=== PATIENT | female | born 1985 | race Two or more races ===

== ENCOUNTER 2024-08-31 10:53 | Outpatient (AMB) | payer MEDICAID, SELFPAY ==
[2024-08-31 11:30] VITALS: BP 110/70; PULSE 70; RESP 16; TEMP 36.4; O2SAT 97; BMI 28.5
--- NOTE | 2024-08-31 11:30 | AMB.OBINITIA ---
Vital Signs 08/31/24 11:30 Height 1.6 m Height Method Stated Weight 73.198 kg Weight Measurement Method Standing Scale BMI 28.5 BP 110/70 Blood Pressure Source Automatic Cuff Blood Pressure Location Left Upper Arm Position Sitting Respiration 16 Pulse 70 Pulse Source Monitor Temp 97.6 F Temp Source Oral Pulse Oximetry (%) 97 Oxygen Delivery Method Room Air Allergies/Home Meds Allergies & Medications Allergies No Known Allergies Allergy (Verified 08/31/24 11:31) Medication Reconciliation vitamins-iron fumarate 27 mg iron-folic acid 0.8 mg tablet ( Vitamin) 1 tab PO QDAY 11/04/19 [History Confirmed 08/31/24] Intake Visit Data Collection New Patient or Established: Established Patient (seen at [facility] within 3 years) Reason for Visit:: CARE TRANSFER Seen by Clinical Staff ONLY (RN/MA): No Yeast Fermentation Attendant Required: No Do You Feel Safe at Home: Yes Authorities Contacted: N/A PCP or OBGYN visit in last 3 months: Yes Hx Now: Yes Are you currently on any form of Control: No Last menstrual period: 12/18/23 Pain Present Currently: No Pain Scale Used: Rankin-Avila/Numerical Pain scale:: 0 Smoking Status Smoking Status: Never smoker Questionnaires Covid-19 Vaccine Questionnaire Has patient been vacinated for Covid-19 Have you been vacinated for Covid-19: Yes PHQ-9 PHQ-2 Over the last 2 weeks, how often have you been bothered by any of the following problems? 1. Little interest or pleasure in doing things: not at all 2. Feeling down, depressed, or hopeless: not at all Total score: 0 PHQ-9 3. Trouble falling or staying asleep, or sleeping too much: Not at all 4. Feeling tired or having little energy: Not at all 5. Poor appetite or overeating: Not at all 6. Feeling bad about yourself - or that you are a failure or have let yourself or your family down: Not at all 7. Trouble concentrating on things, such as reading the newspaper or watching television: Not at all 8. Moving or speaking so slowly that other people could have noticed? - Or the opposite - being so fidgety or restless that you have been moving around a lot more than usual: not at all 9. Thoughts that you would be better off or of hurting yourself in some way: Not at all Total score: 0 Source: Developed by Drs. Richard Rose, Celi Woo, Anish Mitchell and colleagues, with an educational joe from [employer]. Depression screen completed yes Social History Living Situation History Marital Status: Lives With: Family Housing: House Tobacco History Smoking Status: Never smoker Second Hand Smoke Exposure: No Alcohol History Alcohol Intake: Never Domestic Abuse History Do You Feel Safe at Home: Yes Past Medical History Past Medical History Have you ever been diagnosed with any of the following: Neurological Problems Cerebrovascular Accident (CVA): No Transient Ischemic Attacks (TIA): No Dementia: No Alzheimer's Disease: No Parkinson's Disease: No Brain Tumor: No Seizures: No Guillain-Logan Syndrome: No Cardiology Problems Myocardial Infarction: No Cardiac Arrhythmia: No Atrial Fibrillation: No Angina: No Heart Murmur: No Congestive Heart Failure: No Hypertension: No Respiratory Problems Chronic Obstructive Pulmonary Disease (COPD): No Asthma: No Tuberculosis: No Hx Cough: No Cough: No Wheezing: No Chest Deformities: No Smoking: No Smoking Cessation Counseling: No Smoking Exposure: No Tobacco Use: No Stomache/Intestinal Problems Liver Cancer: No Hepatitis: No Gall Bladder Disease: No Colorectal Cancer: No Genital/Urinary Problems Chronic Kidney Disease: No Renal Disease: No Kidney Stones: No Dialysis: No Reproductive Problems Breast Cancer: No Endometriosis: No Pelvic Inflammatory Disease: No Previous Pregnancies: Yes Uterine Prolapse: No Musculoskeletal Problems Muscular Dystrophy: No Myasthenia Gravis: No Marfan's Syndrome: No Bone Cancer: No Head,Eye,Nose,Throat Problems Macular Degeneration: No Chronic Ear Infections: No Endocrine Problems Diabetes Mellitus Type 1: No Diabetes Mellitus Type 2: No (MOTHER) [place]'s Syndrome: No Bernardo's Disease: No Thyroid Cancer: No Adrenal Disease: No Graves' Disease: No Blood Problems Anemia: No Leukemia: No Hemophilia: No Thalassemia: No Sickle Cell Disease: No Clotting Problems: No Psychologic Problems Schizophrenia: No Recreational Drug Use: No Bipolar Disorder: No Depression: No Anxiety: No Depression: No Other Problems Hospitalization: No Autoimmune Disease: No Down Syndrome: No Autism: No Developmental Delay: No Cosmetic Surgery: No Shingles: No Falls: No Blood Transfusions: No Blood Transfusion Reaction: No Anesthesia Reactions: No Organ Transplant: No Chemotherapy: No Radiation Therapy: No Hyperbaric Therapy: No Cancer: No Cervical Cancer: No Lung Cancer: No Ovarian Cancer: No Surgical History Angioplasty: No Appendectomy: No Bariatric Surgery: No Breast Surgery: No Hysterectomy: No Pacemaker: No Sinus Surgery: No Splenectomy: No History of Present Illness HPI Narrative 39-year-old 6 para 4 SAB 1 for first visit to [facility] OB clinic. Patient has previously been seen for care at [facility]. Her records are still pending. Last. Is December 17, 2024 this gave us due date of September 23, 2024. Patient has a follow-up MFM appointment September 10. Patient is currently doing weekly NST BPP for advanced maternal age. Reports good movement. Denies social habits. Denies surgeries. Denies chronic illness. There has been no problems with the so far. No complaints of contractions. Denies leaking and bleeding. Patient reports fetus is active OB Initial Visit OB Flowsheet OB Flowsheet Initial Weight: Not Recorded Date <del>?</del> EGA Weight Edema CTX Effacement BP Fundal ht Pres Dilation Effacement Station Visit Note Alb Glu FHR Mov 08/31/24 <del>?</del> 36w 5d 73.198 kg absent absent 110/70 cephalic 39 yo 6 para 4 SAB 1 for first visit to [facility] OB clinic. Patient's last period was December 18, 2023. Due date September 23, 2024. Patient reports good movement. Denies complaints of labor. Denies leaking or bleeding. Patient has a follow-up MFM appointment September 10, 2024. She is getting weekly BPP NST for advanced maternal age. She is taking her vitamins and iron. Medical records are pending. Discussed kick count and labor precautions with patient. Continue to do weekly NST BPP and labor and delivery. Patient needs group B strep at next appointment Menstrual History Menstrual reliability: definite Flow: normal Menstrual regularity: regular Monthly: Yes Age at menarche: 12 On control pills at conception: No Date of positive home test: 04/07/25 Associated symptoms (LMP): Denies amenorrhea, nausea, vomiting, fatigue, breast tenderness, urinary frequency, irritability, bloating or other OB History : 6 Para: 4 Hx Total # of Abortions (Spontaneous & Elective): 1 # of Living Children: 4 Delivery History 1st : Child's name: KEILY date: 09/05/02 sex: female Delivery type: vaginal Delivery complications: NONE History of depression before or after : No 2nd : Child's name: JORDAN date: 10/27/06 sex: male Delivery type: vaginal Delivery complications: NONE History of depression before or after : No 3rd : Child's name: SUSY date: 11/01/13 sex: male Delivery type: vaginal Delivery complications: NONE History of depression before or after : No 4th : Child's name: CHARLES date: 11/16/19 sex: female Delivery type: vaginal Delivery complications: NONE History of depression before or after : No Infection History & Risk Evaluation History of STDs: none Genetic Screening & History Genetic Screening/Teratology Counseling - Includes patient, baby's father, or anyone in either family with: 1. Patient's age 35 years or older as of estimated date of delivery: Yes 2. Thalassemia (Serbian, Turkish, Mediterranean, or Background); MCV less than 80: No 3. Neural Tube Defect (Meningomyelocele, Spina Bifida, or Anencephaly): No 4. Congenital Heart Defect: No 5. Down Syndrome: No 6. Marito-Sachs (Ashkenazi Hindu, Cajun, Setswana Power): No 7. Vikki Disease (Ashkenazi Hindu): No 8. Familial Dysautonomia (Ashkenazi Hindu): No 9. Sickle Cell Disease or Trait (): No 10. Hemophilia or other blood disorders: No 11. Muscular Dystrophy: No 12. Cystic Fibrosis: No 13. Thomas's Chorea: No 14. Mental Retardation/Autism: No 15. Other inherited genetic or chromosomal disorder: No 16. Maternal Metabolic Disorder (EG,TYPE 1 Diabetes, PKU): No 17. Patient or baby's father had a child with defects not listed above: No 18. Recurrent loss or a stillbirth: No 19. Medications (including supplements, vitamins, herbs or otc drugs)/illicit/recreational drugs/alcohol since last menstrual period: No 20. Any other: No Infection History 1. Live with someone with TB or exposed to TB: No 2. Rash or viral illness since last menstrual period: No 3. Hepatitis B,C: No Other (see comments) Source: [employer] Review of Systems Review of Systems Systems Reviewed: All systems reviewed, normal except as documented Constitutional Constitutional: Denies fatigue Gastrointestinal Gastrointestinal: Denies bloating, Denies nausea and Denies vomiting Genitourinary Genitourinary: Denies amenorrhea and Denies urinary frequency Psychiatric Psychiatric: Denies irritability Endocrine Endocrine: Denies fatigue Exam General Limitations: no limitations General Appearance: alert, in no apparent distress, comfortable, cooperative, healthy appearing, well developed and well groomed Chest Chest inspection: Present normal inspection and symmetric chest wall rise Resp Respiratory exam: Present normal lung sounds bilaterally Card Cardiovascular exam: Present regular rate, normal rhythm and normal heart sounds Abdominal Abdominal exam: Present soft (fh:35 fht:156) and normal bowel sounds Psych Psychiatric exam: Present normal affect and normal mood Assessment & Plan Diagnosis / Problem List (1) Advanced maternal age (AMA) in : Status: Acute (2) Encounter for supervision of normal in multigravida in third trimester: Status: Acute Plan Continue vitamins and iron. Discussed kick counts twice a day. Continue weekly NST BPP at labor and delivery. Keep follow-up appointment with maternal- medicine September 10. GBS next visit. Discussed labor precautions. Additional Plan Follow Up: 1 Week (obc) Office Procedures OB Clinic LOC & Office Proc's Nursing/Assessment Patient Status: Established Patient OB Clinic Nursing Assessment: Medication Reconciliation, Update PMH in EMR and Vital Signs OB Clinic Coordination of Care: AMA, Complex Care and Chronic Disease 1-5, Consent,records obtained, informed consent, Education Simp Pt/Fam, Lab and Imaging orders, Results/Orders obtained and Staff clarify orders Special Needs: Heart tones Established Patient Charge Established Patient Point Assignment: 155 Established Patient Point Charge: EP Level 4 (120-155)
== END 2024-08-31 12:03 | disposition home or self-care (01) ==
LOC: HODSOBC 10:53
PROVIDERS: Supervising Provider Advanced Practice Midwife; Visit Provider Advanced Practice Midwife
DX: O09.523 Supervision of elderly multigravida, third trimester (principal); O09.43 Supervision of pregnancy with grand multiparity, third trimester; O09.293 Supervision of pregnancy with other poor reproductive or obstetric history, third trimester; Z3A.36 36 weeks gestation of pregnancy
CPT/HCPCS: 99214; G0463

== ENCOUNTER 2024-08-31 13:10 | Outpatient (RCR) | payer MEDICAID, SELFPAY ==
--- NOTE | 2024-08-24 13:24 | XR_ITS ---
Examination: Biophysical profile, ultrasound Date and time of exam: August 24, 2024 1414 hrs. Indications: Diagnosis advanced maternal age, diagnosis intrauterine growth retardation Technique: Multiple transabdominal sonographic images of the pelvis abdomen obtained. Attention is directed to the breathing movement, gross body movement, amniotic fluid volume and tone. Findings: Amniotic fluid index 8.1 cm Total biophysical profile is 8 of 8. breathing movement is 2. Gross body movement is 2. tone is 2. Qualitative amniotic fluid volume is 2 Impression: Biophysical profile is 8 of 8.
[2024-08-24 14:34] VITALS: BP 126/72; PULSE 84; RESP 16; TEMP 36.7
--- NOTE | 2024-08-31 13:21 | XR_ITS ---
Examination: Biophysical profile, ultrasound Date and time of exam: August 31, 2024 1315 hours INDICATIONS: Diagnosis advanced maternal age, diagnosis intrauterine growth retardation Technique: Multiple transabdominal sonographic images of the pelvis abdomen obtained. Attention is directed to the breathing movement, gross body movement, amniotic fluid volume and tone. Findings: Amniotic fluid index 12 cm Total biophysical profile is 8 of 8. breathing movement is 2. Gross body movement is 2. tone is 2. Qualitative amniotic fluid volume is 2 Impression: Biophysical profile is 8 of 8.
[2024-08-31 13:55] VITALS: BP 130/70; PULSE 89; RESP 16; TEMP 36.6
== END 2024-08-31 23:59 | disposition home or self-care (01) ==
LOC: S4S1 13:10
PROVIDERS: Referring Provider Student in an Organized Health Care Education/Training Program; Visit Provider Student in an Organized Health Care Education/Training Program
DX: O26.843 Uterine size-date discrepancy, third trimester (principal); O09.893 Supervision of other high risk pregnancies, third trimester; Z3A.36 36 weeks gestation of pregnancy
CPT/HCPCS: 59025; 76819

== ENCOUNTER 2024-09-14 14:23 | Outpatient (AMB) | payer MEDICAID, SELFPAY ==
[2024-09-14 14:35] VITALS: BP 111/72; PULSE 83; RESP 18; TEMP 36; O2SAT 97; BMI 28.8
--- NOTE | 2024-09-14 14:35 | AMB.OBVISIT ---
Vital Signs 09/14/24 14:35 Height 1.6 m Height Method Stated Weight 73.936 kg Weight Measurement Method Standing Scale BMI 28.8 BP 111/72 Blood Pressure Source Automatic Cuff Blood Pressure Location Left Upper Arm Position Sitting Respiration 18 Pulse 83 Pulse Source Monitor Temp 96.8 F Temp Source Oral Pulse Oximetry (%) 97 Oxygen Delivery Method Room Air Allergies/Home Meds Allergies & Medications Allergies No Known Allergies Allergy (Verified 09/14/24 14:36) Medication Reconciliation vitamins-iron fumarate 27 mg iron-folic acid 0.8 mg tablet ( Vitamin) 1 tab PO QDAY 11/04/19 [History Confirmed 09/14/24] Intake Visit Data Collection New Patient or Established: Established Patient (seen at [facility] within 3 years) Reason for Visit:: OBC Seen by Clinical Staff ONLY (RN/MA): No Coal Hiker Required: No Do You Feel Safe at Home: Yes Authorities Contacted: N/A PCP or OBGYN visit in last 3 months: Yes Date of Last PCP or OBGYN visit: 08/31/24 Hx Now: Yes Are you currently on any form of Control: No Pain Present Currently: No Pain scale:: 0 Smoking Status Smoking Status: Never smoker Questionnaires Covid-19 Vaccine Questionnaire Has patient been vacinated for Covid-19 Have you been vacinated for Covid-19: Yes PHQ-9 PHQ-2 Over the last 2 weeks, how often have you been bothered by any of the following problems? 1. Little interest or pleasure in doing things: not at all 2. Feeling down, depressed, or hopeless: not at all Total score: 0 PHQ-9 3. Trouble falling or staying asleep, or sleeping too much: Not at all 4. Feeling tired or having little energy: Not at all 5. Poor appetite or overeating: Not at all 6. Feeling bad about yourself - or that you are a failure or have let yourself or your family down: Not at all 7. Trouble concentrating on things, such as reading the newspaper or watching television: Not at all 8. Moving or speaking so slowly that other people could have noticed? - Or the opposite - being so fidgety or restless that you have been moving around a lot more than usual: not at all 9. Thoughts that you would be better off or of hurting yourself in some way: Not at all Total score: 0 If you checked off any problems, how difficult have these problems made it for you to do your work, take care of things at home, or get along with other people?: not difficult at all Source: Developed by Drs. Richard Rose, Celi Woo, Anish Mitchell and colleagues, with an educational joe from [employer]. Depression screen completed yes Social History Living Situation History Lives With: Family Housing: House Tobacco History Smoking Status: Never smoker Second Hand Smoke Exposure: No Alcohol History Alcohol Intake: Never Domestic Abuse History Do You Feel Safe at Home: Yes Past Medical History Past Medical History Have you ever been diagnosed with any of the following: Neurological Problems Cerebrovascular Accident (CVA): No Transient Ischemic Attacks (TIA): No Dementia: No Alzheimer's Disease: No Parkinson's Disease: No Brain Tumor: No Seizures: No Guillain-[place] Syndrome: No Cardiology Problems Myocardial Infarction: No Cardiac Arrhythmia: No Atrial Fibrillation: No Angina: No Heart Murmur: No Congestive Heart Failure: No Hypertension: No Respiratory Problems Chronic Obstructive Pulmonary Disease (COPD): No Asthma: No Tuberculosis: No Hx Cough: No Cough: No Wheezing: No Chest Deformities: No Smoking: No Smoking Cessation Counseling: No Smoking Exposure: No Tobacco Use: No Stomache/Intestinal Problems Liver Cancer: No Hepatitis: No Gall Bladder Disease: No Colorectal Cancer: No Genital/Urinary Problems Renal Disease: No Kidney Stones: No Dialysis: No Reproductive Problems Breast Cancer: No Endometriosis: No Pelvic Inflammatory Disease: No Previous Pregnancies: Yes Uterine Prolapse: No Musculoskeletal Problems Muscular Dystrophy: No Myasthenia Gravis: No Marfan's Syndrome: No Bone Cancer: No Head,Eye,Nose,Throat Problems Macular Degeneration: No Chronic Ear Infections: No Endocrine Problems Diabetes Mellitus Type 1: No Diabetes Mellitus Type 2: No (MOTHER) Morales's Syndrome: No Bernardo's Disease: No Thyroid Cancer: No Adrenal Disease: No Graves' Disease: No Blood Problems Anemia: No Leukemia: No Hemophilia: No Thalassemia: No Sickle Cell Disease: No Clotting Problems: No Psychologic Problems Schizophrenia: No Recreational Drug Use: No Bipolar Disorder: No Depression: No Anxiety: No Depression: No Other Problems Hospitalization: No Down Syndrome: No Autism: No Developmental Delay: No Cosmetic Surgery: No Shingles: No Falls: No Blood Transfusions: No Blood Transfusion Reaction: No Anesthesia Reactions: No Organ Transplant: No Chemotherapy: No Radiation Therapy: No Hyperbaric Therapy: No Cancer: No Cervical Cancer: No Lung Cancer: No Ovarian Cancer: No Surgical History Angioplasty: No Appendectomy: No Bariatric Surgery: No Breast Surgery: No Hysterectomy: No Pacemaker: No Sinus Surgery: No Splenectomy: No Review of Systems Review of Systems Systems Reviewed: All systems reviewed, normal except as documented Visit OB Visit Log OB Flowsheet Initial Weight: Not Recorded Date <del>?</del> EGA Weight Edema CTX Effacement BP Fundal ht Pres Dilation Effacement Station Visit Note Alb Glu FHR Mov 08/31/24 <del>?</del> 36w 5d 73.198 kg absent absent 110/70 cephalic 39 yo 6 para 4 SAB 1 for first visit to [facility] OB clinic. Patient's last period was December 18, 2023. Due date September 23, 2024. Patient reports good movement. Denies complaints of labor. Denies leaking or bleeding. Patient has a follow-up MFM appointment September 10, 2024. She is getting weekly BPP NST for advanced maternal age. She is taking her vitamins and iron. Medical records are pending. Discussed kick count and labor precautions with patient. Continue to do weekly NST BPP and labor and delivery. Patient needs group B strep at next appointment 09/14/24 <del>?</del> 38w 5d 73.936 kg absent absent 111/72 cephalic Reports good movement. Denies contractions. Complains of pressure. Denies leaking bleeding. Reviewed patient's labs. She had an abnormal 1 hour GTT but her 3-hour GTT was normal 1 value the 2-hour was high others were normal. I still reinforced the need to eat GDM diet and to walk 40 minutes a day. Patient is getting weekly NST BPP because of advanced maternal age. Discussed kick count twice a day. I reviewed labor precautions with patient. Urine dip was negative. Return in a week OB check KEN Calculator Estimated Delivery Date Method Current WG Current Estimate 09/23/24 Ultrasound #1 38w 5d Other Estimates 09/23/24 LMP (Certain) 38w 5d Assessment & Plan Diagnosis / Problem List (1) Encounter for supervision of normal in multigravida in third trimester: Status: Acute (2) Advanced maternal age (AMA) in : Status: Acute Plan discuss labor precaution, fkc bid, continue week NST/BPP for advanced maternal age, fluid, walk 40 minute daily, continue PNV and ironRTC 1 week Additional Plan Follow Up: 1 Week (obc) Office Procedures OB Clinic LOC & Office Proc's Nursing/Assessment Patient Status: Established Patient OB Clinic Nursing Assessment: BP Monitoring, Medication Reconciliation, Update PMH in EMR and Vital Signs OB Clinic Coordination of Care: Consent,records obtained, informed consent, Education Simp Pt/Fam and Staff clarify orders Special Needs: Heart tones Established Patient Charge Established Patient Point Assignment: 105 Established Patient Point Charge: EP Level 3 (80-115)
== END 2024-09-14 15:13 | disposition home or self-care (01) ==
LOC: HODSOBC 14:23
PROVIDERS: Supervising Provider Advanced Practice Midwife; Visit Provider Advanced Practice Midwife
DX: O09.523 Supervision of elderly multigravida, third trimester (principal); Z3A.38 38 weeks gestation of pregnancy; O09.293 Supervision of pregnancy with other poor reproductive or obstetric history, third trimester
CPT/HCPCS: 99213; G0463

== ENCOUNTER 2024-09-17 12:54 | Inpatient (IN) | payer MEDICAID, SELFPAY ==
[2024-09-17] VITALS (85 sets, daily range): BP systolic 118–168; BP diastolic 59–95; PULSE 56–87; RESP 18–99; TEMP 36.9; O2SAT 85–100; BMI 28.9
[2024-09-17 13:27] LABS: ROM Kit Lot # 578010271; ROM Swab Mixed By: WORMR; Rupture of Fetal Membranes Positive (Negative); Swb Mxed in Solvent 1 min? Yes
--- NOTE | 2024-09-17 14:00 | PD.LDHP ---
Documentation for date of: 09/17/24 OB Labor/Induct. HPI History of Present Illness Comments: H and P dictated on STAT line #9 in [employer] # [id number] Meds Home Medications and Allergies Home Medications ?Medication ?Instructions ?Recorded ?Confirmed ?Type vitamins-iron fumarate 27 1 tab PO QDAY 11/04/19 09/17/24 History mg iron-folic acid 0.8 mg tablet ( Vitamin) Allergies Allergy/AdvReac Type Severity Reaction Status Date / Time No Known Allergies Allergy Verified 09/17/24 13:51 OB Exam Physical Exam Vital signs: Temp Pulse Resp BP 98.4 F 79 18 133/80 H 09/17/24 12:54 09/17/24 12:58 09/17/24 12:54 09/17/24 12:58
--- NOTE | 2024-09-17 14:07 | PC.NURSE ---
Dr. Rivas notified of positive amnisure, patient to be admitted to labor unit
[2024-09-17] MEDS: RINGERS LACTATED 1000 ML 1,000 ML 100 ML IV ×3 (14:31→19:46)
[2024-09-17 14:46] LABS: Basophils % (Auto) 0 % (0-2.5); Eosinophils % (Auto) 0 % (0-10); Hematocrit 33.6 % (36.0-46.0); Hemoglobin 11.7 g/dL (12.0-16.0); Immature Granulocytes % (Auto) 1 % (0-0); Lymphocytes # (Auto) 2.5 Thou/mm3 (1.0-4.8); Lymphocytes % (Auto) 23 % (10-50); Mean Corpuscular HGB Conc 34.8 g/dl (31.0-37.0); Mean Corpuscular Volume 83 fL (80-100); Monocytes # (Auto) 0.6 Thou/mm3 (0.0-0.8); Monocytes % (Auto) 6 % (0-12); Neutrophils # (Auto) 7.9 Thou/mm3 (1.8-7.7); Neutrophils % (Auto) 70 % (37-80); Nucleated Red Blood Cell % 0 /100 WBC (0); Platelet Count 299 Thou/mm3 (140-440); RDW Standard Deviation 41.1 fL (36.4-46.3); Red Blood Count 4.04 Miln/mm3 (4.00-5.20); White Blood Count 11.2 Thou/mm3 (3.6-11.0)
--- NOTE | 2024-09-17 15:05 | ESHP_ITS ---
RE: HUE DE JESUS : 1985 DATE OF ADMISSION: 09/17/2024 HISTORY OF PRESENT ILLNESS: This is a 39-year-old 6, para 4-0-0-4 IUP 39w1d, who presents to labor and delivery complaining of leaking fluid since 0700 this morning on 09/17/2024 and is noted to have AmniSure positive. She reports regular contractions. She reports normal movement. She reports her care has been uncomplicated. [facility] with Saritha Watts, due date of 09/23/2024. OBSTETRIC HISTORY: Four previous full-term normal vaginal deliveries without complication and one spontaneous in the first trimester. PAST MEDICAL HISTORY: Advanced maternal age. PAST SURGICAL HISTORY: Denies. FAMILY HISTORY: Denies. REVIEW OF SYSTEMS: She denies any chest pain, palpitations, cough, fever, shortness of breath, or lower extremity pain. She denies any headache, change in vision or right upper quadrant pain. ALLERGIES: NO KNOWN DRUG ALLERGIES. MEDICATIONS: vitamin one p.o. daily. PHYSICAL EXAMINATION: VITAL SIGNS: Blood pressure 133/80, heart rate 79, respirations 18, temperature 98.6, and pulse ox is 98% on room air. HEENT: Oropharynx and sclerae are clear. LUNGS: Clear to auscultation bilaterally. HEART: Regular rate and rhythm. ABDOMEN: Gravid. Term size consistent with estimated weight 8 pounds. PELVIC: Per RN notes exam is 2 cm, 80%, 0 station, vertex ruptured. EXTREMITIES: Nontender. SKIN: No gross rashes or lesions. NEUROLOGIC: No focal deficits. ASSESSMENT: 1. Intrauterine at 39 weeks and 1 day. 2. Early Labor. 3. Anticipate PLAN: Augment with Pitocin if needed. Informed consent was obtained. The patient was made aware of the risks, complications, alternatives, and benefits of the proposed procedure and she agrees. She is aware of the risk of operative vaginal delivery and delivery and agrees with these modes of delivery if indicated. DT: 13:59:46 TT: 15:02:00 Ref: [id number] - TID: [id number] [facility]
[2024-09-17 15:21] LABS: Syphilis Nonreactive (Nonreactive)
[2024-09-17] MEDS: fentaNYL CIT INJ 50 mCg/ML AMP 2ML 100 MCG IV (17:01)
[2024-09-17 18:34] LABS: Collection Type, Urine Clean Catch
[2024-09-17 18:51] LABS: Bacteria,Urine Rare; Bilirubin,Urine Negative (Negative); Blood,Urine 2+ (Negative); Clarity,Urine Clear (Clear/Hazy); Color,Urine Lt-Yellow (Lt Yel-Yel); Glucose, Urine Negative (Negative); Ketones,Urine 2+ (Negative); Leukocyte Esterase,Urine Positive (Negative); Nitrite,Urine Negative (Negative); Protein,Urine Negative (Neg - Trace); RBC,Urine 31 /hpf (0-3); Specific Gravity,Urine 1.011 (1.001-1.035); Squamous Epithelial Cell,Urine 3 /hpf (0-5); Urobilinogen,Urine Negative mg/dL (0.0-1.0); WBC,Urine 16 /hpf (0-5)
[2024-09-17 19:01] LABS: Fibrinogen 523 mg/dL (175-375); INR 0.9 (0.9-1.3); Partial Thromboplastin Time 27.1 Seconds (22.0-36.0); Prothrombin Time 9.9 Seconds (9.0-12.2)
[2024-09-17 19:04] LABS: Creatinine,Random Urine 58 mg/dL (30-125); Protein Total, Random Urine 18 mg/dL (1-14)
[2024-09-17 19:10] LABS: Alanine Aminotransferase 10 U/L (10-49); Albumin, Serum 3.6 gm/dL (3.5-5.0); Albumin/Globulin Ratio 1.1 (1.2-2.2); Alkaline Phosphatase 221 U/L (46-116); Anion Gap 11 (7-16); Aspartate Amino Transferase 18 U/L (0-34); BUN/Creatinine Ratio 10 Ratio (12-20); Bilirubin,Total 0.5 mg/dL (0.3-1.2); Blood Urea Nitrogen 6 mg/dL (9-23); Calcium 8.3 mg/dL (8.3-10.6); Calcium (Corrected) 8.6 mg/dL (8.5-10.1); Carbon Dioxide 21.6 mMol/L (20.0-31.0); Chloride 108 mMol/L (98-107); Creatinine (Component) 0.6 mg/dL (0.6-1.3); Estimated Creatinine Clearance 118.6 mL/min (>60); Globulin 3.3 gm/dL (2.3-3.5); Glucose 85 mg/dL (74-106); Osmolality,Calculated 277 (275-295); Potassium 3.6 mMol/L (3.4-5.1); Sodium 141 mMol/L (136-145); Total Protein 6.9 gm/dL (5.7-8.2); Uric Acid 4.7 mg/dL (3.1-7.8); eGFR > 60 See Note
[2024-09-17] MEDS: OXYTOCIN in NS 20 units 20 UNIT/1,000 ML BAG 999 UNIT IV (20:41)
[2024-09-17] MEDS: METHYLERGONOVINE INJ 0.2 MG/ML VIAL IM (20:51)
[2024-09-17] MEDS: MISOPROSTOL 200 mCg TABLET 800 MCG PR (20:52)
--- NOTE | 2024-09-17 20:59 | PD.LDDS ---
DS: Providers Provider Date of admission: 09/17/24 14:19 Primary care physician: Physician No Primary/Family Admitting Provider: Emeka Rivas MD Attending Provider on Admission: Emeka Rivas MD Attending Provider on DC: Emeka Rivas MD Discharging Provider: Emeka Rivas MD DS: Diagnosis Discharge Diagnosis (1) Uterine atony: Status: Acute (2) (normal spontaneous vaginal delivery): Status: Acute Problem List Completed Was Problem List Reviewed/Reconciled?: Yes Summary/Hosp Course Peripartum Data Delivery Method: Normal Vaginal Delivery Episiotomy Description: None Laceration Description: yes and see Delivery Summary complications: uterine atony [place] 1: Gender: Female Disposition of : home Time Spent with Patient Time attestation: Exam Vital Signs Temp Pulse Resp BP Pulse Ox 98.4 F 65 18 127/59 L 100 09/17/24 12:54 09/17/24 20:51 09/17/24 12:54 09/17/24 20:51 09/17/24 20:57 Discharge Plan Plan Patient Disposition: HOME (Self Care) Patient condition on transfer: Stable Prescriptions/Referrals Prescriptions/Med Rec: New ibuprofen 600 mg tablet 600 mg PO Q6H PRN (Reason: pain) Qty: 30 0RF Continued Vitamin 27 mg iron- 0.8 mg Tablet 1 tab PO QDAY Referrals: No Primary/Family,Physician [Primary Care Provider] - Patient/Caregiver Discharge Instructions Discharge Activity: activity as tolerated Other Discharge Activity Instructions:: Follow up office in 6 weeks. Print Language: [place] Stand Alone Forms: Samantha Award Info., Patient Portal Info Letter Planned Discharge Date 09/17/24
--- NOTE | 2024-09-17 21:05 | PD.LDDELS ---
Data (Singh) Data Hx Section: No : 6 Term: 4 : 0 Livin Abortions: Spontaneous & Theraputic: 1 Delivery Data (Singh) Labor Data ROM date: 09/17/24 ROM time: 07:00 Amniotic membrane rupture type: Spontaneous Amniotic fluid description: Clear Delivery Data EDC: 09/21/24 EDC calculated by:: LMP/early US confirmation Complete dilation date: 09/17/24 [place] delivery date: 09/17/24 Gestational age (weeks): 39 Gestational age (days): 2 Placenta delivery date: 09/17/24 Delivered by: Emeka Rivas Delivery Method Delivery: Vaginal Delivery Type: Spontaneous Presentation: Vertex Position: OA Anesthesia Type Primary Anesthesia: Epidural Placenta Placenta Delivery: Spontaneous Placenta Cultures Obtained: No Placenta Sent for Examination: No Cord Sample: Cord Blood Obtained Lacerations #1: Perineal: 2nd degree Perineal repair Sutures used for repair: 3.0 Chromic EBL Estimated blood loss (ml): 300 Umbilical Cord Nuchal Cord: x1 Additional Procedures None Complications Complications: Uterine atony Data (Singh) Mcallister Data 's gender: Female
[2024-09-18] VITALS: BP 146/77; PULSE 64; RESP 16; TEMP 36.9; O2SAT 98
[2024-09-18 03:03] LABS: Basophils % (Auto) 0 % (0-2.5); Eosinophils % (Auto) 0 % (0-10); Hematocrit 35.9 % (36.0-46.0); Hemoglobin 12.4 g/dL (12.0-16.0); Immature Granulocytes % (Auto) 0 % (0-0); Immature Granulocytes Auto 0.06 Thou/mm3 (0.00-0.00); Lymphocytes % (Auto) 19 % (10-50); Mean Corpuscular HGB Conc 34.5 g/dl (31.0-37.0); Mean Corpuscular Hemoglobin 28.9 pg (25.0-35.0); Mean Corpuscular Volume 84 fL (80-100); Monocytes % (Auto) 7 % (0-12); Neutrophils # (Auto) 11.6 Thou/mm3 (1.8-7.7); Neutrophils % (Auto) 74 % (37-80); Nucleated Red Blood Cell % 0 /100 WBC (0); Platelet Count 262 Thou/mm3 (140-440); RDW Standard Deviation 41.6 fL (36.4-46.3); Red Blood Count 4.29 Miln/mm3 (4.00-5.20); White Blood Count 15.7 Thou/mm3 (3.6-11.0)
[2024-09-18] MEDS: ACETAMINOPHEN 325 MG TABLET 650 MG PO (03:59)
[2024-09-18 04:00] VITALS: BP 121/73; PULSE 59; RESP 16; TEMP 36.9; O2SAT 98
[2024-09-18 09:50] VITALS: BP 107/66; PULSE 74; RESP 16; TEMP 37.2; O2SAT 98
--- NOTE | 2024-09-18 10:04 | ESPR_ITS ---
Subjective Subjective Interval history: Patient is a 39-year-old G6 now [id number] status post vaginal delivery by Dr Rivas for Saritha Watts at about 9:00 PM on 09/17/2024. Patient is resting comfortably in bed. She reports some cramping abdominal pain. She is only taking Tylenol for pain but is okay with ibuprofen. She is breast-feeding. Her interview was done through a telephone production control coordinating clerk as patient is Samoan-speaking only. The patient would like to go home tonight at 24 hours if possible. Exam Vital Signs Temp Pulse Resp BP Pulse Ox O2 Del Method 98.4 F 59 L 16 121/73 98 Room Air 09/18/24 04:00 09/18/24 04:00 09/18/24 04:00 09/18/24 04:00 09/18/24 04:00 09/18/24 04:00 Narrative Exam Is alert and oriented x 3. She is in no apparent distress. Fundus is firm. Extremities showed no edema or erythema bilaterally. Objective Labs 09/18/24 02:43 09/17/24 18:15 Labs: Laboratory Results - last 24 hr 09/17/24 09/17/24 09/17/24 13:08 14:25 18:15 WBC 11.2 H RBC 4.04 Hgb 11.7 L Hct 33.6 L MCV 83 MCH 29.0 MCHC 34.8 RDW Std Deviation 41.1 Plt Count 299 Neut % (Auto) 70 Lymph % (Auto) 23 Zavala % (Auto) 6 Eos % (Auto) 0 Baso % (Auto) 0 Neut # (Auto) 7.9 H Lymph # (Auto) 2.5 Zavala # (Auto) 0.6 Eos # (Auto) 0.0 Baso # (Auto) 0.0 Immature Gran # (Auto) 0.10 H Absolute Nucleated RBC 0.00 Immature Gran % 1 H Nucleated RBC % 0 PT 9.9 INR 0.9 APTT 27.1 Fibrinogen 523 H Sodium 141 Potassium 3.6 Chloride 108 H Carbon Dioxide 21.6 Anion Gap 11 BUN 6 L Creatinine 0.6 Estim Creat Clear Calc 118.6 eGFR > 60 BUN/Creatinine Ratio 10 L Glucose 85 Calculated Osmolality 277 Uric Acid 4.7 Calcium 8.3 Corrected Calcium 8.6 Total Bilirubin 0.5 AST 18 ALT 10 Alkaline Phosphatase 221 H Total Protein 6.9 Albumin 3.6 Globulin 3.3 Albumin/Globulin Ratio 1.1 L Ur Collection Type Clean Catch Urine Color Lt-Yellow Urine Clarity Clear Urine pH 6.0 Ur Specific [place] 1.011 Urine Protein Negative Urine Glucose (UA) Negative Urine Ketones 2+ A Urine Blood 2+ A Urine Nitrite Negative Urine Bilirubin Negative Urine Urobilinogen (Auto) Negative Ur Leukocyte Esterase Positive Urine RBC 31 H Urine WBC 16 H Ur Squamous Epith Cells 3 Urine Bacteria Rare Ur Random Creatinine 58 U Random Total Protein 18 H Membrane Rupture Positive A Syphilis Serology Nonreactive Blood Type O Positive Antibody Screen NEGATIVE Blood Bank Wristband ID Yes 09/18/24 02:43 WBC 15.7 H D RBC 4.29 Hgb 12.4 Hct 35.9 L MCV 84 MCH 28.9 MCHC 34.5 RDW Std Deviation 41.6 Plt Count 262 D Neut % (Auto) 74 Lymph % (Auto) 19 Zavala % (Auto) 7 Eos % (Auto) 0 Baso % (Auto) 0 Neut # (Auto) 11.6 H Lymph # (Auto) 3.0 Zavala # (Auto) 1.0 H Eos # (Auto) 0.0 Baso # (Auto) 0.0 Immature Gran # (Auto) 0.06 H Absolute Nucleated RBC 0.00 Immature Gran % 0 Nucleated RBC % 0 PT INR APTT Fibrinogen Sodium Potassium Chloride Carbon Dioxide Anion Gap BUN Creatinine Estim Creat Clear Calc eGFR BUN/Creatinine Ratio Glucose Calculated Osmolality Uric Acid Calcium Corrected Calcium Total Bilirubin AST ALT Alkaline Phosphatase Total Protein Albumin Globulin Albumin/Globulin Ratio Ur Collection Type Urine Color Urine Clarity Urine pH Ur Specific [place] Urine Protein Urine Glucose (UA) Urine Ketones Urine Blood Urine Nitrite Urine Bilirubin Urine Urobilinogen (Auto) Ur Leukocyte Esterase Urine RBC Urine WBC Ur Squamous Epith Cells Urine Bacteria Ur Random Creatinine U Random Total Protein Membrane Rupture Syphilis Serology Blood Type Antibody Screen Blood Bank Wristband ID Assessment & Plan Problem List (1) Uterine atony: Status: Acute Assessment and plan: Postoperative hemoglobin stable remove 1 IV line (2) (normal spontaneous vaginal delivery): Status: Acute (3) Term delivered: Status: Acute Assessment and plan: Discharge instructions given. If patient is stable she will go home tonight at about 9:00 PM which is 24 hours after delivery. She will follow-up with Saritha Watts CNM at the [facility] across the [place] in 3 weeks. Time Spent With Patient Time: Total time spent is greater than 50% in coordination of care (as documented) at patient's floor/unit and/or counseling patient:
[2024-09-18] MEDS: IBUPROFEN TAB 400 MG TABLET 800 MG PO (10:05)
--- NOTE | 2024-09-18 10:08 | PD.LDDS ---
DS: Providers Provider Date of admission: 09/17/24 14:19 Primary care physician: Physician No Primary/Family Saritha Watts [facility] provider Admitting Provider: Emeka Rivas MD Attending Provider on Admission: Emeka Rivas MD Consults: 09/17/24 22:12 Referral Routine Comment: Attending Provider on DC: Rylee Vallecillo MD ([facility]) Discharging Provider: Rylee Vallecillo MD ([facility]) Anticipated date of discharge: 09/18/24 DS: Diagnosis Discharge Diagnosis (1) Term delivered: Status: Acute Assessment & Plan: Patient is doing well. She was like to go home at 24 hours Problem List Completed Was Problem List Reviewed/Reconciled?: Yes Summary/Hosp Course Brief History: The patient is a 39-year-old -0-1-[address] Rivas on 09/17/2024 in active labor. She delivered around 2100 on 09/17/24 without complications. Patient did have an epidural. She did have a first-degree perineal laceration. She had an uncomplicated post course and would like to go home tonight at 24 hours. She is breast-feeding Peripartum Data Delivery Method: Normal Vaginal Delivery Episiotomy Description: None Laceration Description: see Delivery Summary complications: none Status at Discharge Cognitive/behavioral status at discharge: Patient is alert and oriented x 3 in no apparent distress Functional status at discharge: independent ambulation Overall status at discharge: patient is progressing back to baseline Time Spent with Patient Time attestation: Total time spent providing and/or coordinating discharge services: Time spent: Less than 30 minutes Specific discharge activities: Pelvic rest x 6 weeks. No tampons, intercourse, douching, swimming, or bathtubs x 6 weeks. Exam Vital Signs Temp Pulse Resp BP Pulse Ox O2 Del Method 98.4 F 59 L 16 121/73 98 Room Air 09/18/24 04:00 09/18/24 04:00 09/18/24 04:00 09/18/24 04:00 09/18/24 04:00 09/18/24 04:00 Narrative Exam Fundus is firm nontender. Extremities show no significant edema or erythema bilaterally. Discharge Plan Plan Patient Disposition: HOME (Self Care) Disposition Comment: Stable Patient condition on transfer: Stable Prescriptions/Referrals Prescriptions/Med Rec: New ibuprofen 600 mg tablet 600 mg PO Q6H PRN (Reason: pain) Qty: 30 0RF acetaminophen 325 mg Tablet 650 mg PO Q6HR PRN (Reason: Patient rated pain of 3) Qty: 60 0RF Continued Vitamin 27 mg iron- 0.8 mg Tablet 1 tab PO QDAY Referrals: No Primary/Family,Physician [Primary Care Provider] - Patient/Caregiver Discharge Instructions Discharge Activity: activity as tolerated Other Discharge Activity Instructions:: Follow up office in 6 weeks. Other Discharge Diet Instructions: General Diet as tolerated. Drink lots of water. Education Materials: After a Vaginal , Breast Care After , : Caring for Yourself Print Language: Sierra Leonean Activity Restrictions/Additional Instructions: Pelvic rest x 6 weeks. Call for heavy bleeding, fevers or chills, severe depression. Follow-up with Saritha Watts CNM in 3 to 6 weeks Stand Alone Forms: Samantha Award Info., Patient Portal Info Letter Discharge Order Discharge Orders: Discharge (Routine); Ordered 09/18/24 Ordered By: Rylee Vallecillo ([facility]) Planned Discharge Date 09/18/24
[2024-09-18 12:05] VITALS: BP 103/67; PULSE 66; RESP 17; TEMP 36.7
[2024-09-18 16:15] VITALS: BP 106/69; PULSE 64; RESP 16; TEMP 36.8; O2SAT 98
[2024-09-18 20:30] VITALS: BP 119/76; PULSE 60; RESP 18; TEMP 36.9; O2SAT 99
== END 2024-09-18 22:00 | disposition home or self-care (01) | DRG 560 ==
LOC: S4SX 19:01 → S4NX 23:09
PROVIDERS: Admitting Provider Specialist; Visit Provider Specialist
DX: O69.81X0 Labor and delivery complicated by cord around neck, without compression, not applicable or unspecified (principal); Z3A.39 39 weeks gestation of pregnancy; Z37.0 Single live birth; O70.1 Second degree perineal laceration during delivery; O62.2 Other uterine inertia
CPT/HCPCS: 36415; 59025; 59409; 80053; 81001; 82570; 84112; 84156; 84550; 85025; 85384; 85610; 85730; 86780; 86850; 86900; 86901; 94762; J2210; J2590; J2795; J3010; J7120; S0191; A9270

== ENCOUNTER 2024-10-13 14:21 | Outpatient (AMB) | payer MEDICAID, SELFPAY ==
--- NOTE | 2024-10-13 14:45 | AMB.OBPP ---
Vital Signs 10/13/24 14:53 Weight 68.209 kg Weight Measurement Method Standing Scale BP 123/82 Blood Pressure Source Automatic Cuff Blood Pressure Location Right Upper Arm Position Sitting Respiration 17 Pulse 76 Pulse Source Monitor Temp 98.3 F Temp Source Temporal Artery Scan Pulse Oximetry (%) 97 Oxygen Delivery Method Room Air Allergies/Home Meds Allergies & Medications Allergies No Known Allergies Allergy (Verified 10/13/24 14:54) Medication Reconciliation vitamins-iron fumarate 27 mg iron-folic acid 0.8 mg tablet ( Vitamin) 1 tab PO QDAY 11/04/19 [History Confirmed 10/13/24] ibuprofen 600 mg tablet 600 mg PO Q6H PRN pain #30 tabs 09/17/24 [Rx Confirmed 10/13/24] acetaminophen 325 mg tablet 650 mg (2 x 325 mg) PO Q6HR PRN Patient rated pain of 3 #60 tabs 09/18/24 [Rx Confirmed 10/13/24] Intake Visit Data Collection New Patient or Established: Established Patient (seen at [facility] within 3 years) Reason for Visit:: Seen by Clinical Staff ONLY (RN/MA): No Pyridine Operator Required: No Do You Feel Safe at Home: Yes Authorities Contacted: N/A PCP or OBGYN visit in last 3 months: Yes Date of Last PCP or OBGYN visit: 09/18/24 Hx Now: No Are you currently on any form of Control: No Pain Present Currently: No Pain Scale Used: Rankin-Avila/Numerical Pain scale:: 0 Smoking Status 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 History Past Medical History: No Hx Neurological Disorders, No Hx Breast Cancer, No Hx Cardiac Disorders, No Hx Hypertension, No Hx Cancer, No Hx Blood Disorders, No Hx Anemia, No Hx Gastrointestinal Disorders, No Hx Renal Disease, No Hx Diabetes Mellitus Type 1, No Hx Diabetes Mellitus Type 2 (MOTHER) and No Hx Hysterectomy Questionnaires Covid-19 Vaccine Questionnaire Has patient been vacinated for Covid-19 Have you been vacinated for Covid-19: Yes Social History Living Situation History Marital Status: Lives With: Family Housing: House Tobacco History Smoking Status: Never smoker Second Hand Smoke Exposure: No Alcohol History Alcohol Intake: Never Domestic Abuse History Do You Feel Safe at Home: Yes EPDS - PP Depression Screening Aiken Pospartum Depression Screen I have been able to laugh and see the funny side of things: (0) As much as I always could I have looked forward with enjoyment to things: (0) As much as I ever did I have blamed myself unnecessarily when things went wrong: (0) No, never I have been anxious or worried for no good reason: (0) No, not at all I have felt scared or panicky for no very good reason: (0) No, not at all Things have been getting on top of me: (0) No, I have been coping as well as ever I have been so unhappy that I have had difficulty sleeping: (0) No, not at all I have felt sad or miserable: (0) No, not at all I have been so unhappy that I have been crying: (0) No, never The thought of harming myself has occurred to me: (0) Never EPDS completed yes Care Comments: patient delivered 09/17/24 HPI Interval History: 39-year-old 5 para 5 for 3-week . Patient had a vaginal delivery May 20, 2024. She had a baby girl weighing 6 pounds 6. Patient is breast and bottlefeeding. Patient reports that she is happy no signs of depression. Limited support at home. Patient would like to have the Depo shot. She is not sexually active at this time. No resumption of menses. Baby is breast-feeding and bonding well. Patient was augmented because of surrounding nail. No interval complaints Was or delivery considered high risk: Yes Delivery type: vaginal Was labor induced: no (augmented for ROM NIL) Gestational age at delivery (weeks): 39 Delivery date: 09/17/24 Delivering provider: Ilan Delivery complications: No Delivery complications comment: none Is patient infant: Yes Is patient sexually active: No Contraception planned: wants depo today Review of Systems Review of Systems ROS limited to current OCEANOLOGY TEACHER complaints: Yes Exam Narrative Physical exam: negative homans sign, VS stable, afebrile. abdomen soft, NT. perineum intact, well healed, no swelling, no lochia. breast soft General Limitations: no limitations General Appearance: alert, in no apparent distress, comfortable, cooperative, healthy appearing, well developed and well groomed Head Head exam: atraumatic, normocephalic and normal inspection Eye Eye exam: Present normal appearance, PERRL and EOMI ENT ENT exam: Present normal exam, normal oropharynx and mucous membranes moist Neck Neck exam: Present normal inspection, full ROM and trachea midline Chest Chest inspection: Present normal inspection and symmetric chest wall rise Resp Respiratory exam: Present normal lung sounds bilaterally Card Cardiovascular exam: Present regular rate, normal rhythm and normal heart sounds Abdominal Abdominal exam: Present soft and normal bowel sounds Extremities Extremities exam: Present normal inspection and full ROM Back Back exam: Present normal inspection and full ROM Neuro Neurological exam: Present alert, oriented X3 and CN II-XII intact Psych Psychiatric exam: Present normal affect and normal mood Skin Skin exam: Present warm, dry, intact and normal color Office Procedures [facility] Clinic LOC & Office Proc's Nursing/Assessment Patient Status: Established Patient [facility] Nursing Assessment: Medication Reconciliation, Update PMH in EMR and Vital Signs OB Clinic Coordination of Care: Complex Care and Chronic Disease 1-5, Consent,records obtained, informed consent, Education Simp Pt/Fam, Lab and Imaging orders, Results/Orders obtained and Staff clarify orders Established Patient Charge Established Patient Point Assignment: 105 Established Patient Point Charge: EP Level 3 (80-115) Post Follow-up Visit Post Follow up Visit: Yes Injection/Vaccine Admin SQ Im Injection: Yes Office Meds Depo-Provera 150 mg/mL intramuscular syringe Performing Provider: Saritha Watts CNM Performing Location: [facility] Administered by: Nuvia Rosa MA on 10/13/24 15:52 Dose Route Admin Location Dispensed Lot Number Expiration Date [facility] Process Chemist 150 mg IM RIGHT GLUTE 1 mL [id number] 03/18/28 67073-805-46 [facility] Assessment & Plan Diagnosis / Problem List (1) Routine Follow-Up: (2) 2 weeks follow-up: Status: Acute (3) Encounter for management and injection of depo-Provera: Status: Acute Plan depoprovera 150 IM, review method and side effect. walk 40 minute daily, continue vitamin D and calcium. contineu PNV, discuss latching and breast feeding position, increase fluids. rtc 12 week repeat depo Care Reviewed delivery summary and any complications: Yes Uterus involuted to: 3 below umb Perineal / incision healing noted: Yes Screened for depression: Yes Depression counseling provided: No Discussed family planning & contraception: Yes Contraception planned: wants depo today Counseling on safe resumption of sexual activity: Yes Counseling on gradual excercise: Yes Discussed and concerns (describe), provided support: Yes Referred to forest fire prevention specialist: No Counseled on good nutrition, hydration, and self care: Yes care discussed; questions answered: feeding Follow up: routine/prn (12 week for depo) (FP) Tobacco 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
[2024-10-13 14:53] VITALS: BP 123/82; PULSE 76; RESP 17; TEMP 36.8; O2SAT 97
== END 2024-10-13 15:20 | disposition home or self-care (01) ==
LOC: HODSOBC 14:21
PROVIDERS: Supervising Provider Advanced Practice Midwife; Visit Provider Advanced Practice Midwife
DX: Z39.2 Encounter for routine postpartum follow-up (principal); Z39.1 Encounter for care and examination of lactating mother; Z30.013 Encounter for initial prescription of injectable contraceptive
CPT/HCPCS: 90471; 96372; 99213; J3490; G0463

== ENCOUNTER 2025-01-10 14:55 | Outpatient (AMB) | payer MEDICAID, SELFPAY ==
[2025-01-10 15:18] VITALS: BP 119/78; PULSE 76; RESP 17; TEMP 36.1; O2SAT 98; BMI 26.9
--- NOTE | 2025-01-10 15:18 | AMB.GYNCLNOT ---
Vital Signs 01/10/25 15:18 Height 1.6 m Height Method Measured Weight 69.059 kg Weight Measurement Method Standing Scale BMI 26.9 BP 119/78 Blood Pressure Source Automatic Cuff Blood Pressure Location Right Upper Arm Position Sitting Respiration 17 Pulse 76 Pulse Source Monitor Temp 96.9 F Temp Source Temporal Artery Scan Pulse Oximetry (%) 98 Oxygen Delivery Method Room Air Allergies/Home Meds Allergies & Medications Allergies No Known Allergies Allergy (Verified 01/10/25 15:19) Medication Reconciliation vitamins-iron fumarate 27 mg iron-folic acid 0.8 mg tablet ( Vitamin) 1 tab PO QDAY 11/04/19 [History Confirmed 01/10/25] ibuprofen 600 mg tablet 600 mg PO Q6H PRN pain #30 tabs 09/17/24 [Rx Confirmed 01/10/25] acetaminophen 325 mg tablet 650 mg (2 x 325 mg) PO Q6HR PRN Patient rated pain of 3 #60 tabs 09/18/24 [Rx Confirmed 01/10/25] Intake Visit Data Collection New Patient or Established: Established Patient (seen at [facility] within 3 years) Reason for Visit:: DEPO Consent obtained for Telemed Visit: No Seen by Clinical Staff ONLY (RN/MA): No Senior Facilities Manager Required: No Do You Feel Safe at Home: Yes Authorities Contacted: N/A PCP or OBGYN visit in last 3 months: Yes Date of Last PCP or OBGYN visit: 10/13/24 Hx Now: No Are you currently on any form of Control: No Last menstrual period: 11/30/24 Pain Present Currently: No Pain Scale Used: Rankin-Avila/Numerical Pain scale:: 0 Smoking Status Smoking Status: Never smoker Manager Fine history Manager Fine History Menstrual regularity: irregular Flow: light Monthly: Yes How many days does period last: 5 Age at menarche: 12 Menopausal: No Currently sexually active: Yes 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 1. Little interest or pleasure in doing things: not at all PHQ-9 8. Moving or speaking so slowly that other people could have noticed? - Or the opposite - being so fidgety or restless that you have been moving around a lot more than usual: not at all Source: Developed by Drs. Richard Rose, Celi Woo, Anish Mitchell and colleagues, with an educational joe from [employer]. Social History Living Situation History Lives With: Family Housing: House Tobacco History Smoking Status: Never smoker Second Hand Smoke Exposure: No Alcohol History Alcohol Intake: Never Domestic Abuse History Do You Feel Safe at Home: Yes History of Present Illness HPI Narrative 39-year-old 5 para 5 for repeat Depo. Last Depo was 3 months ago. Breast-feeding a 3-month-old. No menses. Last Pap was 4 years ago. It was normal. Patient is happy with Depo. No interval complaints. No aches. Denies existence of chronic medical illness. Denies surgery. 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 Results Objective Laboratory: preg test negative Office Procedures OB Clinic LOC & Office Proc's Nursing/Assessment Patient Status: Established Patient [facility] Nursing Assessment: Medication Reconciliation, Update PMH in EMR and Vital Signs [facility] Clinic Coordination of Care: Complex Care and Chronic Disease 1-5, Consent,records obtained, informed consent, Education Simp Pt/Fam, Lab and Imaging orders, Results/Orders obtained and Staff clarify orders Miscellaneous Interventions: Blood/Urine Collection Established Patient Charge Established Patient Point Assignment: 135 Established Patient Point Charge: EP Level 4 (120-155) Injection/Vaccine Admin SQ Im Injection: Yes In Clinic Bedside tests Bedside HCG: Yes Office Meds Depo-Provera 150 mg/mL intramuscular syringe Performing Provider: Saritha Watts CNM Performing Location: [facility] Administered by: Patricia Campos MA on 01/10/25 16:09 Dose Route Admin Location Dispensed Lot Number Expiration Date [facility] [employer] 150 mg IM RIGHT GLUTEUS 1 mL [id number] 09/16/27 53558-233-68 [facility] Results Urine HCG Urine HCG Negative Last Edit by Nuvia Rosa MA on 01/10/25 16:42 Assessment & Plan Diagnosis / Problem List (1) Encounter for management and injection of depo-Provera: Status: Acute Plan Depo-Provera today. Return in 3 weeks repeat Depo. Patient to walk 40 minutes a day. Continue vitamins. Night advised taking vitamin D and calcium as well reviewed side effects of Depo. And we will do Pap smear in a year Additional Plan Follow Up: 3 Months (depo)
== END 2025-01-10 16:21 | disposition home or self-care (01) ==
LOC: HODSOBC 14:55
PROVIDERS: Supervising Provider Advanced Practice Midwife; Visit Provider Advanced Practice Midwife
DX: Z30.42 Encounter for surveillance of injectable contraceptive (principal); Z32.02 Encounter for pregnancy test, result negative
CPT/HCPCS: 81025; 96372; 99213; 99214; J3490; G0463